=== PATIENT | female | born 1980 | race Caucasian/White ===

== ENCOUNTER → 2016-11-02 | Outpatient (CLI) | payer OTHER ==
[~2016-11-02] MED LIST: ACET50TA PO; IBUP80TA PO; PERCOCET PO; VITAPRTA PO
[2016-11-02 13:10] LABS: BASO % 0.2 % (0.0-1.0); EOS # 0.1 K/mm3 (0.0-0.50); EOS % 1.5 % (0.0-3.0); LARGE UNSTAINED CELL # 0.1 K/mm3 (0.0-0.4); LARGE UNSTAINED CELL % 1.4 % (0.0-4.0); LYMPH % 23.1 % (24.0-44.0); MEAN CORPUSCULAR HEMOGLOBIN 28.3 pg (27.0-33.0); MEAN CORPUSCULAR HGB CONC 32.9 g/dl (32.0-36.5); MEAN CORPUSCULAR VOLUME 85.9 fl (80.0-96.0); MONO # 0.3 K/mm3 (0.0-0.8); MONO % 3.1 % (0.0-5.0); NEUTROPHILS % 70.7 % (36.0-66.0); PLATELET COUNT, AUTOMATED 257 k/mm3 (150-450); RED CELL DISTRIBUTION WIDTH 13.9 % (11.5-14.5); WHITE BLOOD COUNT 8.5 K/mm3 (4.0-10.0)
== END ==
LOC: M SMT 10:33
PROVIDERS: ATTEND Specialist
DX: Z34.82 Encounter for supervision of other normal pregnancy, second trimester (principal)

== ENCOUNTER → 2016-11-04 | Outpatient (CLI) | payer OTHER | LOC: M LAB 08:25 | PROVIDERS: ATTEND Specialist | DX: Z34.82 Encounter for supervision of other normal pregnancy, second trimester (principal) ==

== ENCOUNTER → 2016-11-30 | Outpatient (CLI) | payer OTHER ==
--- NOTE | 2016-11-30 11:34 | REP ---
OBSTETRIC SONOGRAPHY: HISTORY: Supervision of , followup anatomy. FINDINGS: Scanning through the gravid uterus demonstrates a viable single intrauterine gestation in a cephalic lie. motion is observed and heart rate is recorder 139 beats per minute. A grade 1 posterior placenta is seen without evidence of previa or abruption. Amniotic fluid is subjectively normal. Close cervical length is measured 3.6 cm transabdominally. No extrauterine abnormality is observed. There has been appropriate interval growth. The umbilical cord is seen across the shoulders. No anomaly is seen. The following anatomic structures are identified and felt to be sonographically unremarkable today: cranium, choroid plexus, cavum, cerebellum and posterior fossa, face and profile, lungs, four-chamber heart with left and right ventricular outflow tract views, diaphragm, left-sided stomach, abdominal wall cord insertion, three-vessel umbilical cord, kidneys and bladder, spine, upper and lower extremities. Biometry Chart: BPD 7.7 cm = 31 weeks 0 days HC 28.5 cm = 31 weeks 2 days AC 26.8 cm = 31 weeks 0 days FL 5.6 cm = 29 weeks 3 days HL 5.1 cm = 29 weeks 5 days HC/AC ratio normal 1.06. Cephalic index normal 0.75 Estimated weight 1585 grams, 3 pounds 7 ounces, 48th percentile for 30 weeks 2 days. IMPRESSION: Viable single intrauterine gestation at 30 weeks 1 day by today's composite sonographic criteria. Expected gestational age estimate based on prior sonography is 30 weeks 2 days. TABATHA by prior sonography February 06, 2017. anatomic survey is felt to be complete. Signed by Harlan Duarte MD 11/30/2016 02:23 P
== END ==
LOC: M SMT 10:02
PROVIDERS: ATTEND Specialist
DX: Z36 Encounter for antenatal screening of mother (principal); Z3A.30 30 weeks gestation of pregnancy

== ENCOUNTER → 2017-01-11 | Outpatient (REF) | payer OTHER | LOC: M LAB REF 12:17 | PROVIDERS: ATTEND Obstetrics & Gynecology | DX: Z34.83 Encounter for supervision of other normal pregnancy, third trimester (principal) ==

== ENCOUNTER 2017-01-31 05:43 | Inpatient (IN) | payer OTHER ==
[~2017-01-31] VITALS: Ht 165.1 cm; Wt 78.0 kg
[2017-01-31] VITALS (24 sets, daily range): BP systolic 101–132; BP diastolic 52–82
[2017-01-31] MEDS ORDERED: PENICILLIN G POTASSIUM IV 5 MU in D5W MINI-BAG PLUS 100 ML IV STA (06:32)
[2017-01-31 07:07] LABS: MEAN CORPUSCULAR HEMOGLOBIN 26.3 pg (27.0-33.0); MEAN CORPUSCULAR HGB CONC 32.8 g/dl (32.0-36.5); MEAN CORPUSCULAR VOLUME 80.2 fl (80.0-96.0); RED CELL DISTRIBUTION WIDTH 15.1 % (11.5-14.5); WHITE BLOOD COUNT 9.2 K/mm3 (4.0-10.0)
[2017-01-31] MEDS ORDERED: LR 1,000 ML IV SCH (07:12)
[2017-01-31] MEDS ORDERED: OXYTOCIN DRIP 30 UNITS in APPROPRIATE DILUENT 1 EA IV SCH (07:15)
--- NOTE | 2017-01-31 07:32 | HPE ---
DATE OF ADMISSION: 01/31/2017 [place] 36-year-old 3 para 2-0-0-2 at 39-4/7 weeks gestation with an EDC of 02/03/2017 based on last period and confirmed by first trimester ultrasound. She presents to labor and delivery today for induction of labor due to a history of precipitous delivery with not being treated in a timely manner for positive GBS status. She does report some occasional contractions. Denies vaginal bleeding and leakage of fluid. Her fetus has been active. care was initiated at [facility] in the first trimester. course complicated by advanced maternal age and a history of gestational diabetes. OBSTETRICAL HISTORY: July 2011 at 38 weeks gestation, she had a spontaneous vaginal delivery for a 7 pound 7 ounce female. December 2014 at 40 weeks gestation, she had a spontaneous vaginal delivery, vacuum assist vaginal delivery for a live male . Gestational diabetes. OB LABS: Blood type is A+. Antibody screen. Pap normal, rubella immune, VDRL nonreactive. Hep B surface antigen negative, HIV negative. Hep C antibody nonreactive. Early glucose testing 115. Gonorrhea, chlamydia negative. She did decline genetic serum screening markers. Third trimester diabetic screening elevated at 151 with a normal 3-hour glucose tolerance test fasting 85, 1-hour 176, 2-hour 146, 3-hour 47. GBS is positive. PAST MEDICAL HISTORY: Gestational diabetes. Abnormal Pap smear. Spinal meningitis. Childhood varicella. HPV. SURGERIES: Colposcopy and LEEP. FAMILY HISTORY: Seasonal allergies. Cardiac anomaly. Multiple sclerosis. SOCIAL HISTORY: The patient is . Father is at bedside and supportive. She is a nonsmoker. Denies alcohol and drug use. 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 Denies history of abuse, physical, sexual and emotional. ALLERGIES: No known drug allergies. CURRENT MEDICATIONS: Include: - vitamins - Unisom as needed for sleep OBJECTIVE: Vital signs are stable. Temperature 98.6, pulse 86, respirations 18, BP 113/72. heart rate 130 with moderate variability, positive excels, no decelerations observed. Sterile vaginal exam 4 cm dilated, 8% percent effaced, minus three station. Membranes are intact. No bloody show. Abdomen is gravid, cephalic presentation. Estimated weight 7-1/2 pounds. ASSESSMENT: Intrauterine at 39-4/7 weeks gestation. heart rate category 1. PLAN: Admit the patient to labor and delivery. Labs. Start IV antibiotics for GBS prophylaxis. Out of bed ad xiomara. Clear liquid diet. IV Pitocin for labor induction. I did review risks and benefits to induction including but not limited to increased risk for section, failed induction, intolerance to labor. All the patient's questions have been answered and she does desire to proceed with induction. She also does desire an epidural for labor coping.
[2017-01-31] MEDS: PENICILLIN G POTASSIUM IV 2.5 MU in D5W 100 ML IV SCH ×3 (11:07→18:53)
[2017-01-31] MEDS ORDERED: FENTANYL 2MCG/ML ROPIVACAINE 0.2% IN 0.9% NACL 200ML IVBAG As Ordered ONE (15:16)
[2017-01-31] MEDS ORDERED: LACTATED RINGER'S 1000 ML IV PRN (16:15)
[2017-01-31] MEDS ORDERED: FENTANYL/ROPIVACAINE/NACL BAG 200 ML EPIDURAL SCH (16:15)
[2017-01-31] MEDS ORDERED: diphenhydrAMINE INJ 50MG/ML VIAL (J1200) IV PRN (16:15)
[2017-01-31] MEDS ORDERED: ONDANSETRON 4MG/2ML VIAL (J2405) IV PRN (16:15)
[2017-01-31] MEDS ORDERED: ePHEDrine SULFATE 25 MG/5 ML(5MG/ML) SYRINGE IV PRN (16:15)
[2017-01-31] MEDS ORDERED: REFRIGERATOR IV KEYS XX PRN (16:15)
[2017-01-31] MEDS ORDERED: NALOXONE INJ 0.4 MG/1 ML VIAL (J2310) IV PRN (16:15)
[2017-01-31] MEDS ORDERED: EPIDURAL COMMENT XX SCH (16:15)
[2017-01-31] MEDS ORDERED: EPIDURAL/PCA KEYS XX PRN (16:15)
[2017-01-31 22:49] LABS: CORD GAS ABE A -13.5; CORD GAS HCO3 A 19.6 MEQ/L; CORD GAS O2 SAT A < 15.0 %; CORD GAS PCO2 A 82.6 mmHg; CORD GAS PH A 6.994 UNITS; CORD GAS PO2 A 15.4 mmHg; CORD GAS TCO2 A 22.2 MEQ/L
[2017-01-31 23:06] LABS: CORD GAS ABE V -12.7; CORD GAS HCO3 V 19.8 MEQ/L; CORD GAS O2 SAT V 30.5 %; CORD GAS PCO2 V 78.1 mmHg; CORD GAS PH V 7.022 UNITS; CORD GAS PO2 V 19.6 mmHg; CORD GAS SBC V 13.5 MEQ/L; CORD GAS TCO2 V 22.2 MEQ/L
[2017-02-01 01:15] VITALS: BP 111/59
[2017-02-01] MEDS ORDERED: LR 1,000 ML IV SCH (01:39)
[2017-02-01] MEDS ORDERED: DOCUSATE SODIUM 100 MG CAP PO PRN (01:45)
[2017-02-01] MEDS ORDERED: DIBUCAINE 1% OINTMENT 30GM TOP PRN (01:45)
[2017-02-01] MEDS ORDERED: PROMETHAZINE 25 MG TAB PO PRN (01:45)
[2017-02-01] MEDS ORDERED: RHOGAM 300 MCG (1500 IU) INJ (J2790) IM SCH (01:45)
[2017-02-01] MEDS ORDERED: MEASLES,MUMPS,RUBELLA VACCINE INJ (MMR-II) (90707) SC SCH (01:45)
[2017-02-01] MEDS ORDERED: ONDANSETRON 4MG/2ML VIAL (J2405) IV PRN (01:45)
[2017-02-01] MEDS ORDERED: ACETAMINOPHEN 500 MG TAB PO PRN (01:45)
[2017-02-01] MEDS ORDERED: IBUPROFEN 800 MG TAB PO PRN (01:45)
[2017-02-01 05:58] VITALS: BP 101/56
[2017-02-01] MEDS: KETOROLAC 30 MG/ML VIAL (J1885) IV SCH ×3 (07:06→20:01)
[2017-02-01] MEDS: PRENATAL VITAMIN TAB PO SCH (09:00)
[2017-02-01] MEDS: PERCOCET 5MG/325MG TAB PO PRN ×2 (17:30→22:55)
[2017-02-01 18:00] VITALS: BP 112/57
[2017-02-01 21:15] VITALS: BP 112/57
[2017-02-02] MEDS: KETOROLAC 30 MG/ML VIAL (J1885) IV SCH (02:22)
[2017-02-02 05:53] VITALS: BP 107/52
[2017-02-02] MEDS ORDERED: OXYC1TAB23 PO (06:30)
[2017-02-02] MEDS: PRENATAL VITAMIN TAB PO SCH (09:00)
[2017-02-02] MEDS: PERCOCET 5MG/325MG TAB PO PRN (09:02)
== END 2017-02-02 10:15 | disposition home or self-care (01) | DRG 775 ==
LOC: M LDI 05:43 → M OBS 02-01 01:14
PROVIDERS: ADMIT Advanced Practice Midwife; ATTEND Advanced Practice Midwife
PROC: 10D07Z3 Extraction of Products of Conception, Low Forceps, Via Natural or Artificial Opening (ICD-10-PCS; principal; 2017-01-31)
PROC: 0KQM0ZZ Repair Perineum Muscle, Open Approach (ICD-10-PCS; 2017-01-31)
PROC: 3E033VJ Introduction of Other Hormone into Peripheral Vein, Percutaneous Approach (ICD-10-PCS; 2017-01-31)
DX: O76 Abnormality in fetal heart rate and rhythm complicating labor and delivery (principal); Z37.0 Single live birth; O99.820 Streptococcus B carrier state complicating pregnancy; O70.1 Second degree perineal laceration during delivery; O09.523 Supervision of elderly multigravida, third trimester; Z3A.39 39 weeks gestation of pregnancy

== ENCOUNTER → 2017-06-09 | Outpatient (REF) | payer OTHER ==
[~2017-06-09] MED LIST changes: +OXYC1TAB23 PO
== END ==
LOC: M LAB REF 17:21
PROVIDERS: ATTEND Obstetrics & Gynecology
DX: Z12.4 Encounter for screening for malignant neoplasm of cervix (principal)